=== PATIENT | female | born 1970 | race Two or more races ===

== ENCOUNTER 2025-03-10 12:27 | Inpatient (IN) | payer MEDICAID, OTHER ==
[~2025-03-10] VITALS: Ht 157.5 cm; Wt 72.5 kg
--- NOTE | 2025-03-10 12:43 | ED.PDOC ---
HPI Comments This is a 54 year old female BRIDGETT presenting to the ED with chief complaint of palpitations. Patient reports that she began to experience left sided chest pain with associated palpitations, SOB, and dizziness an hour ago during her shower, causing her to need to sit down, but no relief in symptoms was noted. Patient denies any syncope, N/V, abdominal pain, headache, or fever. 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 Hx Family History Family History: Reviewed,noncontributory to illness Social History Smoker: Non-Smoker Alcohol: Denies ETOH Use Drugs: Denies Drug Use Lives In: Home Constitutional: denies: chills, diaphoresis, fatigue, fever, malaise, sweats, weakness, others EENTM: denies: blurred vision, double vision, ear bleeding, ear discharge, ear drainage, ear pain, ear ringing, eye pain, eye redness, hearing loss, mouth pain, mouth swelling, nasal discharge, nose bleeding, nose congestion, nose pain, photophobia, tearing, throat pain, throat swelling, voice changes, others Respiratory: reports: shortness of breath; denies: cough, hemoptysis, orthopnea, SOB at rest, SOB with excertion, stridor, wheezing, others Cardiovascular: reports: chest pain, palpitations; denies: dizzy spells, diaphoresis, Dyspnea on exertion, edema, irregular heart beat, left arm pain, lightheadedness, PND, syncope, others Gastrointestinal: denies: abdomen distended, abdominal pain, blood streaked bowels, constipated, diarrhea, dysphagia, difficulty swallowing, hematemesis, melena, nausea, poor appetite, poor fluid intake, rectal bleeding, rectal pain, vomiting, others Genitourinary: denies: abnormal vagina bleeding, burning, dyspareunia, dysuria, flank pain, frequency, hematuria, incontinence, pain, , vagina discharge, urgency, others Neurological: reports: dizziness; denies: fainting, headache, left sided numbness, left sided weakness, numbness, paresthesia, pre-existing deficit, righ t sided numbness, right sided weakness, seizure, speech problems, tingling, tremors, weakness, others Musculoskeletal: denies: back pain, gout, joint pain, joint swelling, muscle pain, muscle stiffness, neck pain, others Integumetry: denies: bruises, change in color, change in hair/nails, dryness, laceration, lesions, lumps, rash, wounds, others Allergic/Immunocompromised: denies: Difficulty Healing, Frequent Infections, Hives, Itching, others Hematologic/Lymphatic: denies: anemia, blood clots, easy bleeding, easy bruising, swollen glands, others Endocrine: denies: excessive hunger, excessive sweating, excessive thirst, excessive urination, flushing, intolerance to cold, intolerance to heat, unexplained weight gain, unexplained weight loss, others Psychiatric: denies: anxiety, bipolar disorder, depression, hopeless, panic disorder, schizophrenia, sleepless, suicidal, others All Other Systems: Reviewed and Negative Physical Exam General Appearance: No Apparent Distress, Normal HEENT: Normal ENT Inspection, Pharynx Normal, TMs Normal Neck: Full Range of Motion, Non-Tender, Normal, Normal Inspection Respiratory: Chest Non-Tender, Lungs Clear, No Accessory Muscle Use, No Respiratory Distress, Normal Breath Sounds Cardiovascular: No Edema, No JVD, No Murmur, No Gallop, Normal Peripheral Pulses, Regular Rate/Rhythm Breast Exam: Deferred Gastrointestinal: No Organomegaly, Non Tender, No Pulsatile Mass, Normal Bowel Sounds, Soft Genitalia: Deferred Pelvic: Deferred Rectal: Deferred Extremities: No calf tenderness, Normal capillary refill, Normal inspection, Normal range of motion, Non-tender, No pedal edema Musculoskeletal : Apperance: Normal Neurologic: Alert, physician scientist II-XII nml as Tested, No Motor Deficits, Normal Affect, Normal Mood, No Sensory Deficits Cerebellar Function: Normal Reflexes: Normal Skin: Dry, Normal Color, Warm Lymphatic: No Adenopathy Was a procedure done? Was a procedure done?: No CP Differential Dx Differential Diagnosis: MAT, TN, PAC's Differential Diagnosis: HTN Essential, HTN Accelerated Differential Diagnosis: Myocardial Infarction, Pericarditis X-Ray, Labs, Meds, VS Vital Signs Date Time Temp Pulse Resp B/P (MAP) Pulse Ox O2 Delivery O2 Flow Rate FiO2 03/10/25 15:28 117 03/10/25 13:28 116 03/10/25 12:38 98.1 126 20 174/81 97 98.1 03/10/25 12:30 120 Lab Test 03/10/25 14:21 03/10/25 13:50 03/10/25 12:52 Range/Units Urine Color Yellow Yellow Urine Clarity Clear Clear Urine pH 6.0 5.0-9.0 Urine Specific [place] 1.028 1.001-1.035 Urine Protein 3+ H Negative Urine Ketones Trace Negative Urine Blood 2+ H Negative /uL Urine Nitrite Negative Negative Urine Bilirubin Negative Negative Urine Urobilinogen Normal Negative mg/dL Urine Leukocyte Esterase Negative Negative /uL Urine RBC 13 0 - 4 /hpf Urine Microscopic WBC < 1 0-5 /HPF Urine Squamous Epithelial Cells Few <5 /hpf Urine Bacteria None seen None Seen /hpf Urine Hyaline Casts Many 0 - 2 /lpf Urine Mucus Few None Seen Urine Yeast (Budding) Occasional None Seen /hpf Urine Glucose Normal Normal mg/dL Troponin I High Sensitivity 28 20 </=34 ng/L White Blood Count 9.1 4.4-10.8 10^3/uL Red Blood Count 4.47 4.0-5.20 10^6/uL Hemoglobin 12.7 12.2-16.2 g/dL Hematocrit 38.5 36.0-46.0 % Mean Corpuscular Volume 86.1 80.0-100.0 fL Mean Corpuscular Hemoglobin 28.4 28.0-32.0 pg Mean Corpuscular Hemoglobin Concent 33.0 32.0-36.0 g/dL Red Cell Distribution Width 16.7 H 11.8-14.3 % Platelet Count 404 140-450 10^3/uL Mean Platelet Volume 7.1 6.9-10.8 fL Neutrophils (%) (Auto) 67.8 37.0-80.0 % Lymphocytes (%) (Auto) 23.2 10.0-50.0 % Monocytes (%) (Auto) 8.0 0.0-12.0 % Eosinophils (%) (Auto) 0.1 0.0-7.0 % Basophils (%) (Auto) 0.9 0.0-2.0 % Neutrophils # (Auto) 6.2 1.6-8.6 10 ^3/uL Lymphocytes # (Auto) 2.1 0.4-5.4 10 ^3/uL Monocytes # (Auto) 0.7 0-1.3 10 ^3/uL Eosinophils # (Auto) 0 0-0.8 10 ^3/uL Basophils # (Auto) 0.1 0-0.2 10 ^3/uL Nucleated Red Blood Cells 0.2 % Sodium Level 139 136-145 mmol/L Potassium Level 3.1 L 3.5-5.1 mmol/L Chloride Level 109 H 98-107 mmol/L Carbon Dioxide Level 11 L 20-31 mmol/L Anion Gap 19 H 5-15 Blood Urea Nitrogen 16 9-23 mg/dL Creatinine 0.76 0.550-1.02 mg/dL Glomerular Filtration Rate Calc 92 >90 mL/min BUN/Creatinine Ratio 21.1 H 10.0-20.0 Serum Glucose 90 74-106 mg/dL Calcium Level 7.7 L 8.7-10.4 mg/dL Time of 1ST Reevaluation: 13:40 Reevaluation 1ST: Unchanged Patient Education/Counseling: Diagnosis, Treatment Family Education/Counseling: No Family Present SEPSIS Sepsis Screen Physician Orders Chest Portable (03/10/25 12:36) Electrocardigram (03/10/25 12:31) Troponin-I Hs (03/10/25 15:31) Electrocardigram (03/10/25 13:31) Electrocardigram (03/10/25 15:31) Vital Signs Date Time Temp Pulse Resp B/P (MAP) Pulse Ox O2 Delivery O2 Flow Rate FiO2 03/10/25 15:28 117 03/10/25 13:28 116 03/10/25 12:38 98.1 126 20 174/81 97 98.1 03/10/25 12:30 120 Laboratory Tests Test 03/10/25 12:52 White Blood Count 9.1 10^3/uL (4.4-10.8) Departure 1 Departure Time of Disposition: 16:40 (Patient presented with chest pain and palpitations that was concerning for possible STEMI, ACS, PE, Pneumonia, Muscle Strain, COPD, Dissection. Data: 1. I ordered and reviewed the result of at least 3 labs including a CBC, BMP, and Troponin. 2. I independently interpreted the following tests: EKG which shows sinus arrhythmia and Chest X-ray which shows benign chest.Risk:This patient has a high risk of morbidity due to further diagnostic testing or treatment and may suffer from an acute cardiac or respiratory disorder. Workup reveals concern for ACS versus cardiac arrhythmia and patient should be admitted for further workup and possible expert consultation. ) Impression: Primary Impression: Acute chest pain Additional Impression: Palpitations Disposition: ADMITTED INPATIENT Admit to: Tele Condition: Serious Critical Care Note Critical Care Time?: No Stability Stability form required: No Heart Score Heart Score: Heart Score Response (Comments) Value History Moderate Suspicious 1 EKG Normal 0 Age 45-64 1 Risk Factors No known risk factors 0 Troponin Normal limit 0 Total 2 I personally scribed for SYLVIA TRAN MD ([email or web address]) on 03/10/25 at 12:43. Electronically submitted by Ralph Smith ([email or web address]). SYLVIA TRAN MD Mar 10, 2025 12:43
[2025-03-10 13:07] LABS: Hematocrit 38.5 % (36.0-46.0); Hemoglobin 12.7 g/dL (12.2-16.2); Mean Corpuscular Hemoglobin 28.4 pg (28.0-32.0); Mean Corpuscular Volume 86.1 fL (80.0-100.0); Nucleated Red Blood Cells % 0.2 %
--- NOTE | 2025-03-10 13:14 | DVH ---
XY CHEST PORTABLE, HISTORY: sob COMPARISON: None None TECHNICAL DATA: 1 view of the chest was obtained. FINDINGS: Lines and tubes: None Cardiomediastinal silhouette: normal Pulmonary vasculature: normal Lung expansion: normal Lung airspace: normal Lung interstitium: normal Pleura: normal Pneumothorax: no Bones: Unremarkable Other: no IMPRESSION: No acute intrathoracic abnormality.
[2025-03-10 13:28] LABS: Sodium 139 mmol/L (136-145)
[2025-03-10 13:29] LABS: Chloride 109 mmol/L (98-107); Potassium 3.1 mmol/L (3.5-5.1)
[2025-03-10 13:32] LABS: Anion Gap 19 (5-15); Calcium 7.7 mg/dL (8.7-10.4); Carbon Dioxide 11 mmol/L (20-31)
[2025-03-10 13:34] LABS: BUN/Creatinine Ratio 21.1 (10.0-20.0); Blood Urea Nitrogen 16 mg/dL (9-23); Glucose 90 mg/dL (74-106)
[2025-03-10 14:33] LABS: Urine Budding Yeast OCCASIONAL /hpf (None Seen); Urine Protein, UAD 3+ (Negative)
[2025-03-10] MEDS: SODIUM CHLORIDE 0.9% 1,000 ML IV ONE (15:26)
[2025-03-10] MEDS ORDERED: ONDANSETRON HCL 4 MG/2 ML VIAL IV PRN (22:45)
[2025-03-10] MEDS ORDERED: ACETAMINOPHEN 325 MG TAB PO PRN (22:45)
[2025-03-10 22:59] VITALS: PULSE 85; RESP 18; O2SAT 98
--- NOTE | 2025-03-10 23:04 | ECG ---
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
[2025-03-10] MEDS ORDERED: cloNIDine 0.2 mg/24hr 7DAY PATCH TD ONE (23:45)
[2025-03-10] MEDS: CALCIUM GLUC 1,000mg/50ml-NS 50 ML IV ONE (23:47)
[2025-03-10] MEDS: POTASSIUM CHL 20 Meq TABLET PO ONE (23:47)
--- NOTE | 2025-03-10 23:49 | DVHHP2 ---
History of Present Illness Reason for Visit: Acute chest pain History of Present Illness The patient is a 54 years old female with past medical history of CVA and anxiety who presented to [facility] ED with complaint of palpitations. Patient reports that she started experiencing left-sided chest pain associated with palpitations, shortness of breaths, and dizziness an during her shower, causing her the need to sit down, but no relief of symptoms. Patient was seen and evaluated in the ED, laboratory data shows WBC 9.1, platelets 404, sodium 139, potassium 3.1, BUN 16, creatinine 0.76, glucose 90, anion gap 19, calcium 7.7, troponin 38, blood pressure 159/112 trending down to 130 64, heart rate 131 trending down to 99, temperature 98.3 F, O2 saturation 98% room air. Chest x-ray shows no acute intrathoracic abnormality. Please see medication orders section in the computer. On my assessment, patient denies chest pain at this moment, no headache, no dizziness, no diaphoresis, no shortness of breaths, no nausea, no vomiting, no fever, no chills. Patient was admitted for further evaluation and medical management. Past Medical History Anxiety, CVA Past Surgical History Denies all surgeries Family History Reviewed, noncontributory to the management of this case. Past Social History The patient lives at home, denies smoking, alcohol or illicit drugs abuse. Review of Systems Constitutional: No: Fever, Chills, Sweats, Weakness, Malaise, Other Eyes: No: Pain, Vision change, Conjunctivae inflammation, Eyelid inflammation, Other, Redness ENT: No: Ear pain, Ear discharge, Nose pain, Nose discharge, Nose congestion, Mouth pain, Mouth swelling, Throat pain, Throat swelling, Other Respiratory: Shortness of breath; No: Cough, Dry, SOB with excertion, Wheezing, Hemoptysis, Pleuritic Pain, Sputum, Wheezing, Other Cardiovascular: Chest Pain, Palpitations; No: Orthopnea, Paroxysmal Noc. Dyspnea, Edema, Lt Headedness, Other Gastrointestinal: No: Nausea, Vomiting, Abdominal Pain, Diarrhea, Constipation, Melena, Hematochezia, Other Genitourinary: No Dysuria, No Frequency, No Incontinence, No Hematuria, No Retention, No Other Musculoskeletal: No: other, neck pain, shoulder pain, arm pain, back pain, hand pain, leg pain, foot pain Skin: No: Rash, Lesions, Jaundice, Bruising, Other Neurological: Other (Dizziness); No: Weakness, Numbness, Incoordination, Change in speech, Confusion, Seizures Allergies: Coded Allergies: NO KNOWN ALLERGIES (Unverified , 03/10/25) Medications Current Medications Medications Dose Ordered Sig/Lacho Route Start Time Stop Time Status Last Admin Dose Admin Aspirin 81 mg DAILY PO 03/11/25 10:00 Metoprolol Tartrate 25 mg BID PO 03/11/25 10:00 Levothyroxine Sodium 88 mcg QAM@0600 PO 03/11/25 06:00 Sodium Chloride 1,000 ml @ 60 mls/hr [id number] IV 03/10/25 22:45 Acetaminophen/ Hydrocodone Bitart 1 tab Q4HP PRN PO 03/10/25 22:45 Ondansetron HCl 4 mg Q4HP PRN IV 03/10/25 22:45 Docusate Sodium 100 mg BIDPRN PRN PO 03/10/25 22:45 Acetaminophen 650 mg Q6HP PRN PO 03/10/25 22:45 Exam Vital Signs Vital Signs Date Time Temp Pulse Resp B/P (MAP) Pulse Ox O2 Delivery O2 Flow Rate FiO2 03/10/25 23:46 198/123 03/10/25 23:32 98.3 120 18 98 98.3 03/10/25 22:59 Room Air* 0 21 General Appearance: Alert, Oriented X3, Cooperative, No acute distress HEENT: Atraumatic, PERRLA, EOMI, Mucous membr. moist/pink Respiratory: Normal air movement Cardiovascular: Regular rate, Normal S1, Normal S2, No murmurs Abdominal: Normal bowel sounds, Soft, No tenderness, No hepatospenomegaly, No masses Extremities: No clubbing, No cyanosis, No edema, Normal pulses, No tenderness/swelling Skin: No rashes, No breakdown, No significant lesion Neuro: Normal gait, Normal speech, Strength at 5/5 X4 ext, Normal tone, Sensation intact, Cranial nerves 3-12 NL, Reflexes 2+ Psych/Mental Status: Mental status NL, Mood NL Labs/Xrays Labs Test 03/10/25 16:37 03/10/25 14:21 03/10/25 12:52 Range/Units Troponin I High Sensitivity 38 *H </=34 ng/L Thyroid Stimulating Hormone (TSH) 6.03 H 0.55-4.78 uIU/mL Urine Color Yellow Yellow Urine Clarity Clear Clear Urine pH 6.0 5.0-9.0 Urine Specific [place] 1.028 1.001-1.035 Urine Protein 3+ H Negative Urine Ketones Trace Negative Urine Blood 2+ H Negative /uL Urine Nitrite Negative Negative Urine Bilirubin Negative Negative Urine Urobilinogen Normal Negative mg/dL Urine Leukocyte Esterase Negative Negative /uL Urine RBC 13 0 - 4 /hpf Urine Microscopic WBC < 1 0-5 /HPF Urine Squamous Epithelial Cells Few <5 /hpf Urine Bacteria None seen None Seen /hpf Urine Hyaline Casts Many 0 - 2 /lpf Urine Mucus Few None Seen Urine Yeast (Budding) Occasional None Seen /hpf Urine Glucose Normal Normal mg/dL White Blood Count 9.1 4.4-10.8 10^3/uL Red Blood Count 4.47 4.0-5.20 10^6/uL Hemoglobin 12.7 12.2-16.2 g/dL Hematocrit 38.5 36.0-46.0 % Mean Corpuscular Volume 86.1 80.0-100.0 fL Mean Corpuscular Hemoglobin 28.4 28.0-32.0 pg Mean Corpuscular Hemoglobin Concent 33.0 32.0-36.0 g/dL Red Cell Distribution Width 16.7 H 11.8-14.3 % Platelet Count 404 140-450 10^3/uL Mean Platelet Volume 7.1 6.9-10.8 fL Neutrophils (%) (Auto) 67.8 37.0-80.0 % Lymphocytes (%) (Auto) 23.2 10.0-50.0 % Monocytes (%) (Auto) 8.0 0.0-12.0 % Eosinophils (%) (Auto) 0.1 0.0-7.0 % Basophils (%) (Auto) 0.9 0.0-2.0 % Neutrophils # (Auto) 6.2 1.6-8.6 10 ^3/uL Lymphocytes # (Auto) 2.1 0.4-5.4 10 ^3/uL Monocytes # (Auto) 0.7 0-1.3 10 ^3/uL Eosinophils # (Auto) 0 0-0.8 10 ^3/uL Basophils # (Auto) 0.1 0-0.2 10 ^3/uL Nucleated Red Blood Cells 0.2 % Sodium Level 139 136-145 mmol/L Potassium Level 3.1 L 3.5-5.1 mmol/L Chloride Level 109 H 98-107 mmol/L Carbon Dioxide Level 11 L 20-31 mmol/L Anion Gap 19 H 5-15 Blood Urea Nitrogen 16 9-23 mg/dL Creatinine 0.76 0.550-1.02 mg/dL Glomerular Filtration Rate Calc 92 >90 mL/min BUN/Creatinine Ratio 21.1 H 10.0-20.0 Serum Glucose 90 74-106 mg/dL Calcium Level 7.7 L 8.7-10.4 mg/dL PATIENT: NICK MORALES ACCT: [id number] UNIT: [id number] : 1970 LOC: ER ROOM / BED: / AGE / SEX: 54 / F ADM STATUS: REG ER SERVICE 1236 ORDERING PHYSICIAN: SYLVIA TRAN MD PROCEDURE(s): CXRP - CHEST PORTABLE REASON: sob ORDER NUMBER(s): [id number], ACCESSION NUMBER(s): [id number] CHEST PORTABLE, HISTORY: sob COMPARISON: None None TECHNICAL DATA: 1 view of the chest was obtained. FINDINGS: Lines and tubes: None Cardiomediastinal silhouette: normal Pulmonary vasculature: normal Lung expansion: normal Lung airspace: normal Lung interstitium: normal Pleura: normal Pneumothorax: no Bones: Unremarkable Other: no IMPRESSION: No acute intrathoracic abnormality. SEPSIS Sepsis Screen Date sepsis recognized/suspect: Mar 10, 2025 Time Sepsis recognized/suspect: 1239 Recent Procedure: No On Antibiotic Therapy: No Respiratory Rate >20: No Heart Rate >90: Yes Temp<36 C (96.8 F) or >38.3 C: No SBP <90 or MAP <65 mmHG: No New Acute Mental Status Change: No Is the patient on CPAP, BIPAP,: No Physician Orders Aspirin Tablet (03/11/25 10:00) Metoprolol Tartrate Tablet (Lopressor Ta (03/11/25 10:00) Levothyroxine Tablet (Synthroid Tablet) (03/11/25 06:00) Allergies (03/10/25 22:40) Code Status (03/10/25 22:40) Sodium Chloride 0.9% (03/10/25 22:45) Oxygen Per Hour (03/10/25 22:40) Hydrocodone-Acet 5/325mg Tab ([place] (03/10/25 22:45) Ondansetron Hcl (Zofran) (03/10/25 22:45) Docusate Sodium Capsule (Colace Capsule) (03/10/25 22:45) Complete Blood Count (03/11/25 04:00) Comprehensive Metabolic Panel (03/11/25 04:00) Cardiac Diet-2gna,Lofat,Lochol (03/11/25 Breakfast) Condition: Serious (03/10/25 22:40) Acetaminophen Tablet (Tylenol Tablet) (03/10/25 22:45) Bedrest With Bathroom Privileg (03/10/25 22:40) Maintain Bed Rest (03/10/25 22:40) Sequential Compression Device (03/10/25 ) Vital Signs Date Time Temp Pulse Resp B/P (MAP) Pulse Ox O2 Delivery O2 Flow Rate FiO2 03/10/25 23:46 198/123 03/10/25 23:32 98.3 120 18 198/123 (148) 98 98.3 03/10/25 23:04 121 03/10/25 22:59 85 18 98 Room Air* 0 21 03/10/25 22:39 97.8 124 20 192/87 (122) 100 97.8 03/10/25 19:02 98.3 124 24 159/112 (128) 98 98.3 03/10/25 17:06 98.0 131 22 162/91 (114) 98 98.0 03/10/25 17:06 131 22 98 Room Air Laboratory Tests Test 03/10/25 12:52 White Blood Count 9.1 10^3/uL (4.4-10.8) Medications Medications Dose Ordered Sig/Lacho Route Start Time Stop Time Status Last Admin Dose Admin Aspirin 81 mg ONCE ONCE PO 03/10/25 22:45 03/10/25 22:58 DC 03/10/25 23:47 81 MG Calcium Gluconate/ Sodium Chloride 50 ml @ 100 mls/hr ONCE ONCE IV 03/10/25 22:45 03/10/25 23:14 DC 03/10/25 23:47 100 MLS/HR Clonidine HCl 0.2 mg ONCE ONCE PO 03/10/25 23:45 03/10/25 23:46 DC 03/10/25 23:46 0.2 MG Potassium Chloride 40 meq ONCE ONCE PO 03/10/25 22:45 03/10/25 22:58 DC 03/10/25 23:47 40 MEQ Sodium Chloride 1,000 ml @ 1,000 mls/hr Q1H ONCE IV 03/10/25 17:00 03/10/25 17:59 DC 03/10/25 15:26 1,000 MLS/HR Assessment/Plan Assessment/Plan Acute chest pain Palpitations Electrolyte imbalance Plan 1. Admit to telemetry unit 2. Breathing treatment 3. Pain control management 4. Management of fluids and electrolytes 5. Consultation for cardiology 6. Diagnostic tests chest x-ray 7. DVT prophylaxis-on aspirin 8. Repeat labs CBC, CMP in a.m. 9. Continue with current medical management 10. Treatment plan discussed with patient and RN. Patient verbalized understanding. Plan discussed with: Patient, Other (RN) My Orders Orders - MIREYA REID DNP Procedure Category Date Status Time Aspirin Tablet PHA 03/11/25 In Process 10:00 Metoprolol Tartrate PHA 03/11/25 In Process Tablet (Lopressor Ta 10:00 Levothyroxine Tablet PHA 03/11/25 In Process (Synthroid Tablet) 06:00 Allergies JONA 03/10/25 In Process 22:40 Code Status CODE 03/10/25 Transmitted 22:40 Sodium Chloride 0.9% PHA 03/10/25 In Process 22:45 Oxygen Per Hour RT 03/10/25 Transmitted 22:40 Hydrocodone-Acet PHA 03/10/25 In Process 5/325mg Tab ([place] 22:45 Ondansetron Hcl PHA 03/10/25 In Process (Zofran) 22:45 Docusate Sodium PHA 03/10/25 In Process Capsule (Colace 22:45 Complete Blood Count LAB 03/11/25 Verified 04:00 Comprehensive LAB 03/11/25 Verified Metabolic Panel 04:00 Cardiac DIET 03/11/25 Transmitted Diet-2gna,Lofat,Lochol Breakfast Condition: Serious JONA 03/10/25 In Process 22:40 Acetaminophen Tablet PHA 03/10/25 In Process (Tylenol Tablet) 22:45 Bedrest With Bathroom JONA 03/10/25 In Process Privileg 22:40 Maintain Bed Rest JONA 03/10/25 In Process 22:40 Sequential JONA 03/10/25 In Process Compression Device Problem List: (1) Acute chest pain (2) Palpitations (3) Electrolyte imbalance Date of Service: Mar 10, 2025 Billing Provider: MIREYA REID DNP Common Visit Codes: [id number] INP/OBS CARE (HIGH) MIREYA REID DNP Mar 10, 2025 23:49
[2025-03-10] MEDS: HYDROcodone-ACET 5/325MG TAB PO PRN (23:56)
[2025-03-11] VITALS (10 sets, daily range): BP systolic 119–144; BP diastolic 61–80; PULSE 87–99; RESP 16–21; TEMP 97.5–98.3; O2SAT 97–100
[2025-03-11] MEDS ORDERED: MORPHINE SULFATE INJ 2 MG/ml SYRG IV PRN
[2025-03-11] MEDS ORDERED: NITROGLYCERIN 0.4 MG SL TAB SL PRN
[2025-03-11] MEDS: SODIUM CHLORIDE 0.9% 1,000 ML IV SCH (00:35)
[2025-03-11 03:57] LABS: Hematocrit 35.9 % (36.0-46.0); Hemoglobin 12.0 g/dL (12.2-16.2); Mean Corpuscular Hemoglobin 28.7 pg (28.0-32.0); Mean Corpuscular Volume 86.1 fL (80.0-100.0); Nucleated Red Blood Cells % 0.1 %
[2025-03-11 04:54] LABS: Anion Gap 17 (5-15); BUN/Creatinine Ratio 17.9 (10.0-20.0); Bilirubin, Total 0.5 mg/dL (0.2-1.0); Blood Urea Nitrogen 15 mg/dL (9-23); Potassium 4.0 mmol/L (3.5-5.1); Sodium 138 mmol/L (136-145)
[2025-03-11 04:57] LABS: Alanine Aminotransferase 90 U/L (7-40); Albumin 2.8 g/dL (3.2-4.8); Alkaline Phosphatase 318 U/L (46-116); Calcium 7.8 mg/dL (8.7-10.4); Carbon Dioxide 11 mmol/L (20-31); Chloride 110 mmol/L (98-107); Glucose 122 mg/dL (74-106); Total Protein 5.3 g/dL (5.7-8.2)
[2025-03-11] MEDS: LEVOTHYROXINE SODIUM 88 MCG TAB PO SCH (06:14)
[2025-03-11] MEDS: METOPROLOL TARTRATE 25 MG TAB PO SCH (10:23)
[2025-03-11] MEDS: hydrOXYzine 25 MG TAB or CAP PO PRN (12:54)
--- NOTE | 2025-03-11 14:57 | DVHPN2 ---
Progress Note Date Seen: Mar 11, 2025 Medical Necessity Reason Pt with a Central, PICC or Fol: No Subjective Review of Systems Negative except as above Patient reports: Other (Patient is awake, alert, resting in bed. Patient stated that she can feel the palpitation. No chest pain or shortness for breath, nausea vomiting constipation or diarrhea.) Review of Systems: HEENT:Normal, CVS:Normal, RESPIRATORY:Normal, GI:Normal, :Normal, MSK:Normal, NEURO:Normal Objective vital signs Vital Sign Date Time Temp Pulse Resp B/P (MAP) Pulse Ox O2 Delivery O2 Flow Rate FiO2 03/11/25 13:50 98.1 94 16 144/68 (93) 100 98.1 03/11/25 08:00 Room Air* 0 21 medications Current Medications Medications Dose Ordered Sig/Lacho Route Start Time Stop Time Status Last Admin Dose Admin Aspirin 81 mg DAILY PO 03/11/25 10:00 03/11/25 10:23 81 MG Metoprolol Tartrate 25 mg BID PO 03/11/25 10:00 03/11/25 10:23 25 MG Levothyroxine Sodium 88 mcg QAM@0600 PO 03/11/25 06:00 03/11/25 06:14 88 MCG Sodium Chloride 1,000 ml @ 60 mls/hr [id number] IV 03/10/25 22:45 03/11/25 14:43 60 MLS/HR Acetaminophen/ Hydrocodone Bitart 1 tab Q4HP PRN PO 03/10/25 22:45 03/11/25 06:15 1 TAB Ondansetron HCl 4 mg Q4HP PRN IV 03/10/25 22:45 Docusate Sodium 100 mg BIDPRN PRN PO 03/10/25 22:45 Acetaminophen 650 mg Q6HP PRN PO 03/10/25 22:45 Nitroglycerin 0.4 mg Q5MINP PRN SL 03/11/25 00:00 Morphine Sulfate 2 mg Q30M PRN IV 03/11/25 00:00 Hydroxyzine Pamoate 50 mg Q8HP PRN PO 03/11/25 10:30 03/11/25 12:54 50 MG Examination: GENERAL:Normal, LUNGS:Normal, CVS:Abnormal (Sinus tachycardic), ABDOMEN:Normal, MSK:Normal, SKIN:Normal, NEURO:Normal laboratory and microbiology Laboratory Tests 03/11/25 03:24 Test 03/11/25 03:24 Range/Units Serum Glucose 122 H 74-106 mg/dL Labs and/or images reviewed: Labs reviewed by me, Image(s) reviewed by me Problem List/Assessment/Plan Problem List/Assessment/Plan Sinus tachycardia Elevated TSH Elevated LFTs Hypo chloride anemia Metabolic acidosis Elevated anion gap Elevated troponin rule out ACS Proteinuria Hematuria Anemia normocytic with a clean significant Hypertensive urgency History of CVA History of diabetes Check echo of the heart to rule out ACS strict heart disease Cardiology consult. Pending Cardiac recommendation Troponin plateau Check EKG Resume home meds IV fluids Check ABG to assess for metabolic acidosis Check T4 to assess for hypo thyroidism Cardiac diet Full code Lovenox for DVT prophylaxis No GI prophylaxis needed Plan discussed with: Patient My Orders My Orders Orders - GEORGE ACEVEDO MD Procedure Category Date Status Time Hydroxyzine Oral PHA 03/11/25 In Process (Vistaril Oral) 10:30 Date of Service: Mar 11, 2025 Billing Provider: GEORGE ACEVEDO MD Common Visit Codes: [id number] INP/OBS CARE(HIGH) GEORGE ACEVEDO MD Mar 11, 2025 14:57
[2025-03-11] MEDS ORDERED: dilTIAZem 25 MG/5 ML VIAL IV PRN (15:00)
[2025-03-11] MEDS ORDERED: hydrALAZINE HCL 20 MG/ML VL IV PRN (15:00)
--- NOTE | 2025-03-11 16:25 | DVH ---
INDICATION: elevated lft TECHNIQUE: Multiple real-time sonographic images of the abdomen were obtained. COMPARISON: None FINDINGS: Increased hepatic echogenicity consistent with steatosis.. The liver measures 17.2 cm. No intrahepatic biliary ductal dilatation is noted. Gallbladder has been surgically removed. The common duct measures 0.4 cm and is unremarkable. Fluid in Darby's pouch The right kidney measures 10.5 cm. No hydronephrosis. 3 mm echogenic cortical lesion right The pancreas is not well visualized due to obscuration from bowel gas. The visualized portions of the IVC and aorta are grossly unremarkable. IMPRESSION: 1. Increased hepatic echogenicity consistent with steatosis; the liver is enlarged at 17.2 cm. 2. Status post cholecystectomy. 3. There is no intrahepatic biliary ductal dilatation. 4. The common duct is unremarkable at 0.4 cm. 5. Fluid is present in Darby's pouch. 6. The right kidney is normal in size with a 3 mm echogenic cortical lesion and no hydronephrosis. 7. The pancreas is not well visualized due to obscuration from bowel gas. 8. The visualized portions of the IVC and aorta are grossly unremarkable.
[2025-03-11] MEDS: SOD CHL 0.45% 1,000 ML IV SCH (16:35)
[2025-03-11 17:31] LABS: Base Excess -4.1 mmol/L (-2.0-3.0)
[2025-03-11] MEDS: DOCUSATE SOD 100 MG CAP PO PRN (21:33)
[2025-03-12] VITALS (7 sets, daily range): BP systolic 117–150; BP diastolic 68–73; PULSE 73–97; RESP 16–20; TEMP 97–97.8; O2SAT 96–97
--- NOTE | 2025-03-12 09:57 | DVHINCON2 ---
Date Seen: Mar 12, 2025 Referring Physician Dinesh Reason for Consultation Chest Pain, Palpitations History of Present Illness 54-year-old female with PMH for HTN taken off medication about 1-1/2 years prior, anxiety presented to the hospital with chest pain, palpitations, worsening shortness of breath. Patient states she started to feel short of breath at rest felt anxious and felt her heart was racing. Patient also was having some chest discomfort described as pressure in nature retrosternal nonradiating constant. Patient does endorse she has also been noticing some increased lower extremity edema on and off for the last 1.5 months. Denies any previous cardiac workup, arrhythmias, or seen cardiology specialty. Patient does endorse family history of heart problems with grandmother and mother having CHF and hypertension. Upon evaluation in the ER patient found to have troponins trending 20, 28, 38. CXR negative for acute congestion/edema. Elevated LFTs with AST 215 and ALT 90. Patient endorses occasional at times heavy alcohol consumption socially. Patient also found to have elevated blood pressure of 174/81 on presentation as well as being tachycardic with heart rate to the 120s to 130s. EKG reviewed and shows sinus tachycardia at 121 beats per minute, LVH, nonspecific ST and T-wave abnormality. Past Medical History HTN, anxiety Past Surgical History Denies previous cardiac surgeries Family History Mother and grandmother, CHF, HTN Social History Denies tobacco, illicit drug use. Occasional alcohol use with binge drinking socially Allergies: Coded Allergies: NO KNOWN ALLERGIES (Unverified , 03/10/25) Current Medications Current Medications Medications (Trade) Dose Ordered Sig/Lacho Route PRN Reason Start Time Stop Time Status Last Admin Aspirin 81 mg DAILY PO 03/11/25 10:00 03/12/25 08:34 Metoprolol Tartrate (Lopressor Tablet) 25 mg BID PO 03/11/25 10:00 03/12/25 08:34 Hydroxyzine Pamoate (Vistaril Oral) 50 mg Q8HP PRN PO ANXIETY 03/11/25 10:30 03/11/25 12:54 Sodium Chloride 1,000 ml @ 100 mls/hr Q10H IV 03/11/25 15:00 03/12/25 01:00 Hydralazine HCl (Apresoline Injection) 10 mg Q6HP PRN IV SBP>150 03/11/25 15:00 Diltiazem HCl (Cardizem Injection) 10 mg Q4H PRN IV HR > 110 03/11/25 15:00 Review of Systems Constitutional: No: Fever, Chills, Sweats, Weakness, Malaise, Other Eyes: No: Pain, Vision change, Conjunctivae inflammation, Eyelid inflammation, Other, Redness ENT: No: Ear pain, Ear discharge, Nose pain, Nose discharge, Nose congestion, Mouth pain, Mouth swelling, Throat pain, Throat swelling, Other Respiratory: No: Cough, Dry, Shortness of breath, SOB with exertion, Wheezing, Hemoptysis, Pleuritic Pain, Sputum, Wheezing, Other Cardiovascular: ; No: Chest Pain Palpitations, Orthopnea, Paroxysmal Noc. Dy spnea, Edema, Lt Headedness, Other Gastrointestinal: No: Nausea, Vomiting, Abdominal Pain, Diarrhea, Constipation, Melena, Hematochezia, Other Genitourinary: No Dysuria, No Frequency, No Incontinence, No Hematuria, No Retention, No Other Musculoskeletal: neck pain; No: other, shoulder pain, arm pain, back pain, hand pain, leg pain, foot pain Skin: No: Rash, Lesions, Jaundice, Bruising, Other Neurological: Other (Dizziness, headache.); No: Weakness, Numbness, Incoordination, Change in speech, Confusion, Seizures Vital Signs Vital Signs Date Time Temp Pulse Resp B/P (MAP) Pulse Ox O2 Delivery O2 Flow Rate FiO2 03/12/25 09:00 83 20 125/68 (87) 97 03/12/25 08:00 Room Air* 0 21 03/12/25 05:00 97.7 97.7 Physical Exam General appearance: Patient is well-developed, well-nourished, in no acute distress. HEENT: Exam shows: Normocephalic, atraumatic, PERRLA, EOMI Neck: Supple, no bruits Chest: Equal chest excursion bilaterally. Breath sounds normal-no rales or wheezes. Heart: Rhythm: Regular rate; no murmur or gallop Abdomen: Exam shows: Soft, nontender, nondistended Musculoskeletal: No clubbing, no cyanosis; trace lower extremity edema Dermatology: Skin warm, moist. Neurological: Exam shows: Alert and oriented x4, normal speech Available prior records, labs, EKG, rhythm strips reviewed and interpreted Labs/Diagnostic Data Labs Test 03/11/25 16:35 03/11/25 03:24 03/10/25 16:37 03/10/25 14:21 Range/Units Blood Gas Specimen Type Arterial Blood Gas Sample Site Right radial Blood Gas Patient Temperature 37.0 Arterial Blood Date Drawn [id number] Arterial Blood pH 7.466 H 7.350-7.450 Arterial Blood Partial Pressure CO2 26.3 L 32.0-45.0 mmHg Arterial Blood Partial Pressure O2 94.3 83.0-108.0 mmHg Arterial Blood HCO3 18.5 L 21.0-28.0 mmol/L Arterial Blood Oxygen Saturation 97.0 94.0-98.0 % Arterial Blood Base Excess -4.1 L -2.0-3.0 mmol/L Arterial Blood Oxyhemoglobin 96.2 94.0-98.0 % Arterial Blood Carboxyhemoglobin 0.3 L 0.5-1.5 % Arterial Blood Methemoglobin 0.5 0.0-1.5 % Yobany Test Yes Blood Gas Total Hemoglobin 10.10 L 12.0-16.0 g/dL Blood Gas Modality Room air FiO2 % 21.0 White Blood Count 10.8 4.4-10.8 10^3/uL Red Blood Count 4.17 4.0-5.20 10^6/uL Hemoglobin 12.0 L 12.2-16.2 g/dL Hematocrit 35.9 L 36.0-46.0 % Mean Corpuscular Volume 86.1 80.0-100.0 fL Mean Corpuscular Hemoglobin 28.7 28.0-32.0 pg Mean Corpuscular Hemoglobin Concent 33.3 32.0-36.0 g/dL Red Cell Distribution Width 16.5 H 11.8-14.3 % Platelet Count 320 140-450 10^3/uL Mean Platelet Volume 7.7 6.9-10.8 fL Neutrophils (%) (Auto) 77.9 37.0-80.0 % Lymphocytes (%) (Auto) 14.4 10.0-50.0 % Monocytes (%) (Auto) 6.8 0.0-12.0 % Eosinophils (%) (Auto) 0.1 0.0-7.0 % Basophils (%) (Auto) 0.8 0.0-2.0 % Neutrophils # (Auto) 8.4 1.6-8.6 10 ^3/uL Lymphocytes # (Auto) 1.6 0.4-5.4 10 ^3/uL Monocytes # (Auto) 0.7 0-1.3 10 ^3/uL Eosinophils # (Auto) 0 0-0.8 10 ^3/uL Basophils # (Auto) 0.1 0-0.2 10 ^3/uL Nucleated Red Blood Cells 0.1 % Sodium Level 138 136-145 mmol/L Potassium Level 4.0 3.5-5.1 mmol/L Chloride Level 110 H 98-107 mmol/L Carbon Dioxide Level 11 L 20-31 mmol/L Anion Gap 17 H 5-15 Blood Urea Nitrogen 15 9-23 mg/dL Creatinine 0.84 0.550-1.02 mg/dL Glomerular Filtration Rate Calc 82 >90 mL/min BUN/Creatinine Ratio 17.9 10.0-20.0 Serum Glucose 122 H 74-106 mg/dL Calcium Level 7.8 L 8.7-10.4 mg/dL Total Bilirubin 0.5 0.2-1.0 mg/dL Aspartate Amino Transferase (AST) 215 H 13-40 U/L Alanine Aminotransferase (ALT) 90 H 7-40 U/L Alkaline Phosphatase 318 H 46-116 U/L Total Protein 5.3 L 5.7-8.2 g/dL Albumin 2.8 L 3.2-4.8 g/dL Free Thyroxine (T4) Calculated 0.78 L 0.89-1.76 ng/dL Troponin I High Sensitivity 38 *H </=34 ng/L Thyroid Stimulating Hormone (TSH) 6.03 H 0.55-4.78 uIU/mL Urine Color Yellow Yellow Urine Clarity Clear Clear Urine pH 6.0 5.0-9.0 Urine Specific [place] 1.028 1.001-1.035 Urine Protein 3+ H Negative Urine Ketones Trace Negative Urine Blood 2+ H Negative /uL Urine Nitrite Negative Negative Urine Bilirubin Negative Negative Urine Urobilinogen Normal Negative mg/dL Urine Leukocyte Esterase Negative Negative /uL Urine RBC 13 0 - 4 /hpf Urine Microscopic WBC < 1 0-5 /HPF Urine Squamous Epithelial Cells Few <5 /hpf Urine Bacteria None seen None Seen /hpf Urine Hyaline Casts Many 0 - 2 /lpf Urine Mucus Few None Seen Urine Yeast (Budding) Occasional None Seen /hpf Urine Glucose Normal Normal mg/dL Assessment * Chest Pain - Mild troponin positive at 38. Trend. EKG with nonspecific ST abnormality. Check ECHO. Continue on aspirin and statin. * Palpitations - Tele monitoring. On metoprolol 25 mg po twice daily. Outpatient event monitoring. * Shortness of breath - CXR negative for congestive/edema. Check BNP. Follow up echo. * Uncontrolled HTN - Better controlled. Continue on metoprolol. * Elevated LFTs - ultrasound showing increased hepatic echo centricity consistent with steatosis. Enlarged liver at 17.2 cm. Management per primary team. * Hypothyroid - On levothyroxine. Case Discussed with Dr James. Continue blood pressure control. Trend troponin. Follow up echo. If no significant abnormalities noted on echo, we will Plan for stress test Friday morning. Critical care, time spent: 40 minutes This medical document was created using an electronic medical record system with voice recognition software and computerized dictation system. Although this document has been carefully reviewed, there might still be some phonetic and typographical errors. Occasional wrong-word or ``sound-alike substitutions may have occurred due to the inherent limitations of voice recognition software. These areas are purely typographical due to imperfections of the software programs and do not reflect any compromise in the patient's medical care. Please read the chart carefully and recognize, using context, where these substitutions have occurred. Thank you for allowing me to participate in the management of this patient. The treatment plan was discussed with and agreed upon by patient/family including requesting consultants and ordering of imaging/procedures. Plan discussed with: Patient NYHA Physical activity limitations: Class3(Marked) ordinary Date of Service: Mar 12, 2025 Billing Provider: LAUAR MCNALLY Cardiology Common Codes: [id number] INP/OBS CARE (High), [id number] CARE 30-74 MIN LAURA MCNALLY Mar 12, 2025 09:57
[2025-03-12 10:37] LABS: Hematocrit 30.2 % (36.0-46.0); Hemoglobin 9.6 g/dL (12.2-16.2); Mean Corpuscular Hemoglobin 28.0 pg (28.0-32.0); Mean Corpuscular Volume 88.1 fL (80.0-100.0); Nucleated Red Blood Cells % 0.2 %
--- NOTE | 2025-03-12 17:40 | DVHPN2 ---
Progress Note Date Seen: Mar 12, 2025 Medical Necessity Reason Pt with a Central, PICC or Fol: No Subjective Patient reports: Feels better Objective vital signs Vital Sign Date Time Temp Pulse Resp B/P (MAP) Pulse Ox O2 Delivery O2 Flow Rate FiO2 03/12/25 13:00 97.8 83 20 150/73 (98) 97 97.8 03/12/25 08:00 Room Air* 0 21 Total Intake and Output 03/11/25 03/11/25 03/12/25 15:00 23:00 07:00 Intake Total 120 ml 1340 ml Balance 120 ml 1340 ml medications Current Medications Medications Dose Ordered Sig/Lacho Route Start Time Stop Time Status Last Admin Dose Admin Aspirin 81 mg DAILY PO 03/11/25 10:00 03/12/25 08:34 81 MG Metoprolol Tartrate 25 mg BID PO 03/11/25 10:00 03/12/25 08:34 25 MG Levothyroxine Sodium 88 mcg QAM@0600 PO 03/11/25 06:00 03/12/25 05:39 88 MCG Acetaminophen/ Hydrocodone Bitart 1 tab Q4HP PRN PO 03/10/25 22:45 03/12/25 11:27 1 TAB Ondansetron HCl 4 mg Q4HP PRN IV 03/10/25 22:45 Docusate Sodium 100 mg BIDPRN PRN PO 03/10/25 22:45 03/12/25 16:02 100 MG Acetaminophen 650 mg Q6HP PRN PO 03/10/25 22:45 Nitroglycerin 0.4 mg Q5MINP PRN SL 03/11/25 00:00 Morphine Sulfate 2 mg Q30M PRN IV 03/11/25 00:00 Hydroxyzine Pamoate 50 mg Q8HP PRN PO 03/11/25 10:30 03/12/25 16:03 50 MG Sodium Chloride 1,000 ml @ 100 mls/hr Q10H IV 03/11/25 15:00 03/12/25 01:00 100 MLS/HR Hydralazine HCl 10 mg Q6HP PRN IV 03/11/25 15:00 Diltiazem HCl 10 mg Q4H PRN IV 03/11/25 15:00 Examination: GENERAL:Normal, HEENT:Normal, NECK:Normal, LUNGS:Normal, CVS:Normal, ABDOMEN:Normal, MSK:Normal, SKIN:Normal, NEURO:Normal laboratory and microbiology Laboratory Tests 03/12/25 10:10 03/11/25 03:24 Test 03/11/25 03:24 Range/Units Serum Glucose 122 H 74-106 mg/dL Labs and/or images reviewed: Labs reviewed by me, Image(s) reviewed by me Problem List/Assessment/Plan Problem List/Assessment/Plan Sinus tachycardia Elevated TSH Elevated LFTs Hypo chloride anemia Metabolic acidosis Elevated anion gap Elevated troponin rule out ACS Proteinuria Hematuria Anemia normocytic with a clean significant Hypertensive urgency History of CVA History of diabetes HR stable at 80s Cardiology rec apprecated Troponin plateau Resume home meds IV fluids Echo pending Cardiac diet Full code Lovenox for DVT prophylaxis No GI prophylaxis needed Plan discussed with: Patient Date of Service: Mar 12, 2025 Billing Provider: GEORGE ACEVEDO MD Common Visit Codes: [id number] INP/OBS CARE(MOD) GEORGE ACEVEDO MD Mar 12, 2025 17:40
--- NOTE | 2025-03-12 23:12 | DVHINCON2 ---
Date Seen: Mar 12, 2025 Referring Physician Dinesh Reason for Consultation Chest Pain, Palpitations History of Present Illness This is a 54-year-old female with a PMH of HTN taken off medication about 1-1/2 years prior, anxiety who presented to the ED with complaints of chest pain, palpitations, worsening shortness of breath. Patient states she started to feel short of breath at rest felt anxious and felt her heart was racing. Patient also was having some chest discomfort described as pressure in nature retrosternal nonradiating constant. Patient does endorse she has also been noticing some increased lower extremity edema on and off for the last 1.5 months. Patient denies any previous cardiac workup, arrhythmias, or seen cardiology specialty. Patient does endorse family history of heart problems with grandmother and mother having CHF and hypertension. Upon evaluation in the ED patient found to have troponins trending 20 > 28 > 38. Chest x-ray is negative for acute congestion/edema. Elevated LFTs with AST 215 and ALT 90. Patient endorses occasional at times heavy alcohol consumption socially. Patient also found to have elevated blood pressure of 174/81 on presentation as well as being tachycardic with heart rate to the 120s to 130s. EKG reviewed and shows sinus tachycardia at 121 beats per minute, LVH, nonspecific ST and T-wave abnormality. Patient was admitted to the hospital. I am asked to consult on this patient. Past Medical History HTN, anxiety Past Surgical History Denies previous cardiac surgeries Allergies: Coded Allergies: NO KNOWN ALLERGIES (Unverified , 03/10/25) Current Medications Current Medications Medications (Trade) Dose Ordered Sig/Lacho Route PRN Reason Start Time Stop Time Status Last Admin Sodium Chloride 1,000 ml @ 100 mls/hr Q10H IV 03/11/25 15:00 03/12/25 01:00 Hydralazine HCl (Apresoline Injection) 10 mg Q6HP PRN IV SBP>150 03/11/25 15:00 Diltiazem HCl (Cardizem Injection) 10 mg Q4H PRN IV HR > 110 03/11/25 15:00 Review of Systems Constitutional: No: Fever, Chills, Sweats, Weakness, Malaise, Other Eyes: No: Pain, Vision change, Conjunctivae inflammation, Eyelid inflammation, Other, Redness ENT: No: Ear pain, Ear discharge, Nose pain, Nose discharge, Nose congestion, Mouth pain, Mouth swelling, Throat pain, Throat swelling, Other Respiratory: No: Cough, Dry, Shortness of breath, SOB with exertion, Wheezing, Hemoptysis, Pleuritic Pain, Sputum, Wheezing, Other Cardiovascular: ; No: Chest Pain Palpitations, Orthopnea, Paroxysmal Noc. Dyspnea, Edema, Lt Headedness, Other Gastrointestinal: No: Nausea, Vomiting, Abdominal Pain, Diarrhea, Constipation, Melena, Hematochezia, Other Genitourinary: No Dysuria, No Frequency, No Incontinence, No Hematuria, No R etention, No Other Musculoskeletal: neck pain; No: other, shoulder pain, arm pain, back pain, hand pain, leg pain, foot pain Skin: No: Rash, Lesions, Jaundice, Bruising, Other Neurological: Other (Dizziness, headache.); No: Weakness, Numbness, Incoordin ation, Change in speech, Confusion, Seizures Vital Signs Vital Signs Date Time Temp Pulse Resp B/P (MAP) Pulse Ox O2 Delivery O2 Flow Rate FiO2 03/12/25 09:34 140/73 03/12/25 09:00 83 20 97 03/12/25 08:00 Room Air* 0 21 03/12/25 05:00 97.7 97.7 Physical Exam GENERAL: Alert and oriented x 3. No acute distress. EYES: PERRL, EOMI. Anicteric. HENT: Moist mucous membranes. LUNGS: Clear to auscultation bilaterally. CARDIOVASCULAR: Regular rate and rhythm. ABDOMEN: Soft, nontender and nondistended. EXTREMITIES: No edema. NEUROLOGIC: No focal neurological deficits. SKIN: Warm, dry. Labs/Diagnostic Data Labs Test 03/12/25 10:10 03/11/25 16:35 03/11/25 03:24 03/10/25 16:37 Range/Units White Blood Count 4.8 # 4.4-10.8 10^3/uL Red Blood Count 3.43 L 4.0-5.20 10^6/uL Hemoglobin 9.6 #L 12.2-16.2 g/dL Hematocrit 30.2 #L 36.0-46.0 % Mean Corpuscular Volume 88.1 80.0-100.0 fL Mean Corpuscular Hemoglobin 28.0 28.0-32.0 pg Mean Corpuscular Hemoglobin Concent 31.7 L 32.0-36.0 g/dL Red Cell Distribution Width 17.3 H 11.8-14.3 % Platelet Count 246 140-450 10^3/uL Mean Platelet Volume 7.6 6.9-10.8 fL Neutrophils (%) (Auto) 58.7 37.0-80.0 % Lymphocytes (%) (Auto) 28.4 10.0-50.0 % Monocytes (%) (Auto) 11.6 0.0-12.0 % Eosinophils (%) (Auto) 0.2 0.0-7.0 % Basophils (%) (Auto) 1.1 0.0-2.0 % Neutrophils # (Auto) 2.8 1.6-8.6 10 ^3/uL Lymphocytes # (Auto) 1.4 0.4-5.4 10 ^3/uL Monocytes # (Auto) 0.6 0-1.3 10 ^3/uL Eosinophils # (Auto) 0 0-0.8 10 ^3/uL Basophils # (Auto) 0.1 0-0.2 10 ^3/uL Nucleated Red Blood Cells 0.2 % Troponin I High Sensitivity 7 </=34 ng/L B-Type Natriuretic Peptide 226.18 0-100 pg/mL Blood Gas Specimen Type Arterial Blood Gas Sample Site Right radial Blood Gas Patient Temperature 37.0 Arterial Blood Date Drawn [id number] Arterial Blood pH 7.466 H 7.350-7.450 Arterial Blood Partial Pressure CO2 26.3 L 32.0-45.0 mmHg Arterial Blood Partial Pressure O2 94.3 83.0-108.0 mmHg Arterial Blood HCO3 18.5 L 21.0-28.0 mmol/L Arterial Blood Oxygen Saturation 97.0 94.0-98.0 % Arterial Blood Base Excess -4.1 L -2.0-3.0 mmol/L Arterial Blood Oxyhemoglobin 96.2 94.0-98.0 % Arterial Blood Carboxyhemoglobin 0.3 L 0.5-1.5 % Arterial Blood Methemoglobin 0.5 0.0-1.5 % Yobany Test Yes Blood Gas Total Hemoglobin 10.10 L 12.0-16.0 g/dL Blood Gas Modality Room air FiO2 % 21.0 Sodium Level 138 136-145 mmol/L Potassium Level 4.0 3.5-5.1 mmol/L Chloride Level 110 H 98-107 mmol/L Carbon Dioxide Level 11 L 20-31 mmol/L Anion Gap 17 H 5-15 Blood Urea Nitrogen 15 9-23 mg/dL Creatinine 0.84 0.550-1.02 mg/dL Glomerular Filtration Rate Calc 82 >90 mL/min BUN/Creatinine Ratio 17.9 10.0-20.0 Serum Glucose 122 H 74-106 mg/dL Calcium Level 7.8 L 8.7-10.4 mg/dL Total Bilirubin 0.5 0.2-1.0 mg/dL Aspartate Amino Transferase (AST) 215 H 13-40 U/L Alanine Aminotransferase (ALT) 90 H 7-40 U/L Alkaline Phosphatase 318 H 46-116 U/L Total Protein 5.3 L 5.7-8.2 g/dL Albumin 2.8 L 3.2-4.8 g/dL Free Thyroxine (T4) Calculated 0.78 L 0.89-1.76 ng/dL Thyroid Stimulating Hormone (TSH) 6.03 H 0.55-4.78 uIU/mL Test 03/10/25 14:21 Range/Units Urine Color Yellow Yellow Urine Clarity Clear Clear Urine pH 6.0 5.0-9.0 Urine Specific [place] 1.028 1.001-1.035 Urine Protein 3+ H Negative Urine Ketones Trace Negative Urine Blood 2+ H Negative /uL Urine Nitrite Negative Negative Urine Bilirubin Negative Negative Urine Urobilinogen Normal Negative mg/dL Urine Leukocyte Esterase Negative Negative /uL Urine RBC 13 0 - 4 /hpf Urine Microscopic WBC < 1 0-5 /HPF Urine Squamous Epithelial Cells Few <5 /hpf Urine Bacteria None seen None Seen /hpf Urine Hyaline Casts Many 0 - 2 /lpf Urine Mucus Few None Seen Urine Yeast (Budding) Occasional None Seen /hpf Urine Glucose Normal Normal mg/dL Assessment Chest pain. Palpitations. Shortness of breath. Uncontrolled HTN. Elevated LFTs. Hypothyroid. Plan/Recommendation I agree with your ongoing assessment and care of plan. Patient has been seen by Vinnie Landa NP on my behalf, him and I discussed the plan with the patient. Patient's case was discussed with me. Continue blood pressure control. Trend troponin. Follow up echo. If no significant abnormalities noted on echo, we will Plan for stress test Friday morning. IV Cardizem. IV Hydralazine for SBP > 150. Metoprolol. Aspirin. Morphine and [place] for pain management. Additional plan as per the hospital course. Plan discussed with: Patient NYHA Physical activity limitations: Class3(Marked) ordinary Date of Service: Mar 12, 2025 Billing Provider: NELLA GOLD MD Cardiology Common Codes: [id number] INP/OBS CARE (High) Cardiology Consultation Codes: [id number] CONSULT <45MIN NELLA GOLD MD Mar 12, 2025 12:41
[2025-03-13] VITALS (9 sets, daily range): BP systolic 115–167; BP diastolic 60–89; PULSE 76–97; RESP 16–20; TEMP 97.6–98.7; O2SAT 85–100
--- NOTE | 2025-03-13 15:10 | DVHPN2 ---
Progress Note Date Seen: Mar 13, 2025 Medical Necessity Reason Pt with a Central, PICC or Fol: No Subjective Patient reports: No new complaints (Palpitation improved) Objective vital signs Vital Sign Date Time Temp Pulse Resp B/P (MAP) Pulse Ox O2 Delivery O2 Flow Rate FiO2 03/13/25 12:35 98.4 77 20 129/75 (93) 99 98.4 03/13/25 08:00 Room Air* 0 21 Total Intake and Output 03/12/25 03/12/25 03/13/25 15:00 23:00 07:00 Intake Total 118 ml 600 ml 720 ml Balance 118 ml 600 ml 720 ml medications Current Medications Medications Dose Ordered Sig/Lacho Route Start Time Stop Time Status Last Admin Dose Admin Aspirin 81 mg DAILY PO 03/11/25 10:00 03/13/25 09:13 81 MG Metoprolol Tartrate 25 mg BID PO 03/11/25 10:00 03/13/25 09:12 25 MG Levothyroxine Sodium 88 mcg QAM@0600 PO 03/11/25 06:00 03/13/25 06:03 88 MCG Acetaminophen/ Hydrocodone Bitart 1 tab Q4HP PRN PO 03/10/25 22:45 03/13/25 09:17 1 TAB Ondansetron HCl 4 mg Q4HP PRN IV 03/10/25 22:45 Docusate Sodium 100 mg BIDPRN PRN PO 03/10/25 22:45 03/13/25 12:51 100 MG Acetaminophen 650 mg Q6HP PRN PO 03/10/25 22:45 Nitroglycerin 0.4 mg Q5MINP PRN SL 03/11/25 00:00 Morphine Sulfate 2 mg Q30M PRN IV 03/11/25 00:00 Hydroxyzine Pamoate 50 mg Q8HP PRN PO 03/11/25 10:30 03/13/25 12:51 50 MG Sodium Chloride 1,000 ml @ 100 mls/hr Q10H IV 03/11/25 15:00 03/13/25 07:01 100 MLS/HR Hydralazine HCl 10 mg Q6HP PRN IV 03/11/25 15:00 Diltiazem HCl 10 mg Q4H PRN IV 03/11/25 15:00 Examination: GENERAL:Normal, HEENT:Normal, NECK:Normal, LUNGS:Normal, CVS:Normal, ABDOMEN:Normal, MSK:Normal, SKIN:Normal, NEURO:Normal, :Normal laboratory and microbiology Laboratory Tests 03/12/25 10:10 03/11/25 03:24 Test 03/11/25 03:24 Range/Units Serum Glucose 122 H 74-106 mg/dL Labs and/or images reviewed: Labs reviewed by me, Image(s) reviewed by me Problem List/Assessment/Plan Problem List/Assessment/Plan Sinus tachycardia Elevated TSH Elevated LFTs Hypo chloride anemia Metabolic acidosis Elevated anion gap Elevated troponin rule out ACS Proteinuria Hematuria Anemia normocytic with a clean significant Hypertensive urgency History of CVA History of diabetes Cardiology rec apprecated Troponin plateau Resume home meds IV fluids NPO after midnight Nuclear stress test in a.m. Full code Lovenox for DVT prophylaxis No GI prophylaxis needed Plan discussed with: Patient My Orders My Orders Orders - GEORGE ACEVEDO MD Procedure Category Date Status Time Npo (Nothing By DIET 03/14/25 Transmitted Mouth) Diet Breakfast Date of Service: Mar 13, 2025 Billing Provider: GEORGE ACEVEDO MD Common Visit Codes: [id number] INP/OBS CARE(MOD) GEORGE ACEVEDO MD Mar 13, 2025 15:10
--- NOTE | 2025-03-13 18:05 | DVHSR ---
APPROVED REPORT EXAM: Two-dimensional and M-mode echocardiogram with Doppler and color Doppler. Blood Pressure: 118/71 mmHg INDICATION Elevated Troponin R/O ACS RISK FACTORS Height: 5' 2", Weight: 156 DIMENSIONS LVDd4.0 (3.8-5.7cm)LA (2D)3.9 (1.9-4.0cm)Aortic Root2.9 (2.0-3.7cm) LVDs2.8 (2.5-4.0cm)LA (MM) (1.9-4.0cm)Aortic Cusp Exc1.6 (1.5-2.0cm) EF (%) 56.0 (55-70%)Rt. Atrium3.9 (1.9-4.0cm)Asc. Aorta cm IVSd0.9 (0.7-1.1cm)RV (D) (1.8-2.4cm) PWd0.9 (0.7-1.1cm) Mitral Valve MitralMitral Stenosis E wave1.00m/sMV Mean GR.mmHg A wave1.10m/sMV Peak GR.mmHg E/A ratio0.92D MVAcm2 Aortic Valve Aortic ValveAortic Stenosis V11.10m/Greg Mean GR.6mmHg V21.60m/Greg Peak GR.11mmHg LVOT Diameter2.1 (1.8-2.4cm)Doppler AVA2.38cm2 Tricuspid Valve TR Velocity2.50m/s [id number] Conclusion LV EF IS 65% AND IS NORMAL NORMAL VALVES NORMAL RV FUNCTION NO EFFUSION
--- NOTE | 2025-03-13 23:05 | DVHPN2 ---
Progress Note - Dictate Date Seen: Mar 13, 2025 Medical Necessity Reason Pt with a Central, PICC or Fol: No Subjective Patient was seen and evaluated in follow up. No overnight events. Patient complains of generalized discomfort. HGB 9.6, HCT 30.2. Telemetry reviewed. vital signs Vital Sign Date Time Temp Pulse Resp B/P (MAP) Pulse Ox O2 Delivery O2 Flow Rate FiO2 03/13/25 17:00 98.0 91 20 135/75 (95) 100 98.0 03/13/25 08:00 Room Air* 0 21 Total Intake and Output 03/12/25 03/12/25 03/13/25 15:00 23:00 07:00 Intake Total 118 ml 600 ml 720 ml Balance 118 ml 600 ml 720 ml medications Current Medications Medications Dose Ordered Sig/Lacho Route Start Time Stop Time Status Last Admin Dose Admin Aspirin 81 mg DAILY PO 03/11/25 10:00 03/13/25 09:13 81 MG Metoprolol Tartrate 25 mg BID PO 03/11/25 10:00 03/13/25 09:12 25 MG Levothyroxine Sodium 88 mcg QAM@0600 PO 03/11/25 06:00 03/13/25 06:03 88 MCG Acetaminophen/ Hydrocodone Bitart 1 tab Q4HP PRN PO 03/10/25 22:45 03/13/25 09:17 1 TAB Ondansetron HCl 4 mg Q4HP PRN IV 03/10/25 22:45 Docusate Sodium 100 mg BIDPRN PRN PO 03/10/25 22:45 03/13/25 12:51 100 MG Acetaminophen 650 mg Q6HP PRN PO 03/10/25 22:45 Nitroglycerin 0.4 mg Q5MINP PRN SL 03/11/25 00:00 Morphine Sulfate 2 mg Q30M PRN IV 03/11/25 00:00 Hydroxyzine Pamoate 50 mg Q8HP PRN PO 03/11/25 10:30 03/13/25 12:51 50 MG Sodium Chloride 1,000 ml @ 100 mls/hr Q10H IV 03/11/25 15:00 03/13/25 07:01 100 MLS/HR Hydralazine HCl 10 mg Q6HP PRN IV 03/11/25 15:00 Diltiazem HCl 10 mg Q4H PRN IV 03/11/25 15:00 objective GENERAL: Alert and oriented x 3. No acute distress. EYES: PERRL, EOMI. Anicteric. HENT: Moist mucous membranes. LUNGS: Clear to auscultation bilaterally. CARDIOVASCULAR: Regular rate and rhythm. ABDOMEN: Soft, nontender and nondistended. EXTREMITIES: No edema. NEUROLOGIC: No focal neurological deficits. SKIN: Warm, dry. laboratory and microbiology Laboratory Tests 03/12/25 10:10 03/11/25 03:24 Test 03/11/25 03:24 Range/Units Serum Glucose 122 H 74-106 mg/dL Problem List Chest pain. Palpitations. Shortness of breath. Uncontrolled HTN. Elevated LFTs. Hypothyroid. Assessment/Plan Continued all current supportive medical care. Stress test. Morphine and [place] for pain management. Aspirin, Metoprolol. Cardizem. IV Hydralazine for SBP > 150. Additional plan as per the hospital course. Dietary Evaluation Review Comments: 1) Continue cardiac diet 2) Encourage optimal PO intake 3) Refer to outpatient RD for weight management 4) Follow-up with cardiology 5) Continue to monitor I&O, labs, and skin integrity Expected Outcomes/Goals: 1) appetite and labs to improve 2) gradual wt loss 3) f/u in 3-5 days Plan discussed with: Patient NELLA GOLD MD Mar 13, 2025 18:43
[2025-03-14 01:00] VITALS: BP 153/71; PULSE 88; RESP 18; TEMP 96.7; O2SAT 98
[2025-03-14 05:00] VITALS: BP 131/85; PULSE 87; RESP 18; TEMP 96.7; O2SAT 100
[2025-03-14] MEDS ORDERED: REGADENOSON 0.4 MG/5 ML SYRG IV ONE (07:30)
[2025-03-14 08:00] VITALS: PULSE 75; PULSE 90; RESP 18
[2025-03-14 08:33] VITALS: BP 164/89; PULSE 90; RESP 16; TEMP 98; O2SAT 100
[2025-03-14] MEDS: REGADENOSON 0.4 MG/5 ML SYRG IV ONE ×2 (09:32→09:51)
--- NOTE | 2025-03-14 12:39 | DVHSR ---
APPROVED REPORT Exam: Nuclear Stress Test BMI: 0 Stress Test Details HR Max Heart Rate (APMHR): 164.203544 bpm Target HR (85% APMHR): 139.130964 bpm BP ECG Stress ECG Conclusion lvef 54% no severe ischemia notd NM EXAM: Myocardial Perfusion REST/STRESS Imaging Protocol: Rest Tc-99m/Stress Tc-99m 1 day Resting Data Rest SPECT myocardial perfusion imaging was performed in supine position 60 minutes following the int ravenous injection of 10.1 mCi of Tc-99m Sestamibi. Time of rest injection: 08:00 Date: 03/14/2025 Time of rest imagin:00 Date: 03/14/2025 Administration Route: IV Administration Site: Right AC Pharmacologic Stress Pharmacologic stress test was performed by injecting Regadenoson 0.4 mg IV push followed by the intra venous injection of 32.1 mCi of Tc-99m Sestamibi. Time of stress injection: 09:50 Date: 03/14/2025 Time of stress imagin:50 Date: 03/14/2025 Administration Route: IV Administration Site: Right AC Gated Stress SPECT was performed 60 minutes after stress injection. The images were gated to evaluate regional wall motion and calculate left ventricular ejection fracti on. Stress only was performed in the position. Nuclear Conclusion Nuclear Findings: negative for ischemia lvef 54% no severe ischemia notd
[2025-03-14 12:53] LABS: Potassium 4.4 mmol/L (3.5-5.1); Sodium 142 mmol/L (136-145)
[2025-03-14 12:54] LABS: Anion Gap 8 (5-15); Carbon Dioxide 22 mmol/L (20-31)
[2025-03-14 12:58] LABS: Calcium 7.7 mg/dL (8.7-10.4); Chloride 112 mmol/L (98-107)
[2025-03-14 12:59] LABS: BUN/Creatinine Ratio 26.5 (10.0-20.0); Blood Urea Nitrogen 18 mg/dL (9-23); Glucose 104 mg/dL (74-106)
[2025-03-14 13:01] LABS: Magnesium 1.6 mg/dL (1.6-2.6)
[2025-03-14] MEDS ORDERED: LISI-275 PO (13:04)
[2025-03-14] MEDS ORDERED: METO-6 PO (13:04)
[2025-03-14] MEDS ORDERED: LEVO50TA7 PO (13:04)
--- NOTE | 2025-03-14 13:06 | DVHDS2 ---
Discharge Summary Date of Admission Mar 10, 2025 at 23:47 Date of Discharge: Mar 14, 2025 Admitting Diagnosis Palpitations Labs/Diagnostic Data: Laboratory Results Test 03/14/25 11:55 03/12/25 10:10 03/11/25 16:35 03/11/25 03:24 Sodium Level 142 mmol/L (136-145) Potassium Level 4.4 mmol/L (3.5-5.1) Chloride Level 112 mmol/L (98-107) Carbon Dioxide Level 22 mmol/L (20-31) Anion Gap 8 (5-15) Blood Urea Nitrogen 18 mg/dL (9-23) Creatinine 0.68 mg/dL (0.550-1.02) Glomerular Filtration Rate Calc 102 mL/min (>90) BUN/Creatinine Ratio 26.5 (10.0-20.0) Serum Glucose 104 mg/dL (74-106) Calcium Level 7.7 mg/dL (8.7-10.4) Magnesium Level 1.6 mg/dL (1.6-2.6) White Blood Count 4.8 10^3/uL (4.4-10.8) Red Blood Count 3.43 10^6/uL (4.0-5.20) Hemoglobin 9.6 g/dL (12.2-16.2) Hematocrit 30.2 % (36.0-46.0) Mean Corpuscular Volume 88.1 fL (80.0-100.0) Mean Corpuscular Hemoglobin 28.0 pg (28.0-32.0) Mean Corpuscular Hemoglobin Concent 31.7 g/dL (32.0-36.0) Red Cell Distribution Width 17.3 % (11.8-14.3) Platelet Count 246 10^3/uL (140-450) Mean Platelet Volume 7.6 fL (6.9-10.8) Neutrophils (%) (Auto) 58.7 % (37.0-80.0) Lymphocytes (%) (Auto) 28.4 % (10.0-50.0) Monocytes (%) (Auto) 11.6 % (0.0-12.0) Eosinophils (%) (Auto) 0.2 % (0.0-7.0) Basophils (%) (Auto) 1.1 % (0.0-2.0) Neutrophils # (Auto) 2.8 10 ^3/uL (1.6-8.6) Lymphocytes # (Auto) 1.4 10 ^3/uL (0.4-5.4) Monocytes # (Auto) 0.6 10 ^3/uL (0-1.3) Eosinophils # (Auto) 0 10 ^3/uL (0-0.8) Basophils # (Auto) 0.1 10 ^3/uL (0-0.2) Nucleated Red Blood Cells 0.2 % Troponin I High Sensitivity 7 ng/L (</=34) B-Type Natriuretic Peptide 226.18 pg/mL (0-100) Blood Gas Specimen Type Arterial Blood Gas Sample Site Right radial Blood Gas Patient Temperature 37.0 Arterial Blood Date Drawn [id number] Arterial Blood pH 7.466 (7.350-7.450) Arterial Blood Partial Pressure CO2 26.3 mmHg (32.0-45.0) Arterial Blood Partial Pressure O2 94.3 mmHg (83.0-108.0) Arterial Blood HCO3 18.5 mmol/L (21.0-28.0) Arterial Blood Oxygen Saturation 97.0 % (94.0-98.0) Arterial Blood Base Excess -4.1 mmol/L (-2.0-3.0) Arterial Blood Oxyhemoglobin 96.2 % (94.0-98.0) Arterial Blood Carboxyhemoglobin 0.3 % (0.5-1.5) Arterial Blood Methemoglobin 0.5 % (0.0-1.5) Yobany Test Yes Blood Gas Total Hemoglobin 10.10 g/dL (12.0-16.0) Blood Gas Modality Room air FiO2 % 21.0 Total Bilirubin 0.5 mg/dL (0.2-1.0) Aspartate Amino Transferase (AST) 215 U/L (13-40) Alanine Aminotransferase (ALT) 90 U/L (7-40) Alkaline Phosphatase 318 U/L (46-116) Total Protein 5.3 g/dL (5.7-8.2) Albumin 2.8 g/dL (3.2-4.8) Free Thyroxine (T4) Calculated 0.78 ng/dL (0.89-1.76) Test 03/10/25 16:37 03/10/25 14:21 Thyroid Stimulating Hormone (TSH) 6.03 uIU/mL (0.55-4.78) Urine Color Yellow (Yellow) Urine Clarity Clear (Clear) Urine pH 6.0 (5.0-9.0) Urine Specific [place] 1.028 (1.001-1.035) Urine Protein 3+ (Negative) Urine Ketones Trace (Negative) Urine Blood 2+ /uL (Negative) Urine Nitrite Negative (Negative) Urine Bilirubin Negative (Negative) Urine Urobilinogen Normal mg/dL (Negative) Urine Leukocyte Esterase Negative /uL (Negative) Urine RBC 13 /hpf (0 - 4) Urine Microscopic WBC < 1 /HPF (0-5) Urine Squamous Epithelial Cells Few /hpf (<5) Urine Bacteria None seen /hpf (None Seen) Urine Hyaline Casts Many /lpf (0 - 2) Urine Mucus Few (None Seen) Urine Yeast (Budding) Occasional /hpf (None Urine Glucose Normal mg/dL (Normal) Other Laboratory Tests 03/14/25 11:55 03/12/25 10:10 Brief Hx & Hospital Course: History of Present Illness The patient is a 54 years old female with past medical history of CVA and anxiety who presented to [facility] ED with complaint of palpitations. Patient reports that she started experiencing left-sided chest pain associated with palpitations, shortness of breaths, and dizziness an during her shower, causing her the need to sit down, but no relief of symptoms. Patient was seen and evaluated in the ED, laboratory data shows WBC 9.1, platelets 404, sodium 139, potassium 3.1, BUN 16, creatinine 0.76, glucose 90, anion gap 19, calcium 7.7, troponin 38, blood pressure 159/112 trending down to 130 64, heart rate 131 trending down to 99, temperature 98.3 F, O2 saturation 98% room air. Chest x-ray shows no acute intrathoracic abnormality. Please see medication orders section in the computer. On my assessment, patient denies chest pain at this moment, no headache, no dizziness, no diaphoresis, no shortness of breaths, no nausea, no vomiting, no fever, no chills. Patient was admitted for further evaluation and medical management. Course of hospitalization: Patient's heart rate improved with beta-felipe therapy. Patient is blood pressure also improved with p.o. antihypertensives. 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 No inducible ischemia noted. Echocardiogram unremarkable. Patient will be discharged home with beta-felipe and JANE inhibitor therapy. Patient was also found to be hypothyroid, for which levothyroxine we will be prescribed as well. Patient was agreeable to be discharged home today all questions answered. Physical examination General: Alert and Oriented x3. No acute distress. Well-nourished. Eyes: EOMI. Anicteric. HENT: Moist mucous membranes. Lungs: Clear to auscultation bilaterally. No accessory muscle use. Cardiovascular: Regular rate and rhythm. No murmur. No JVD. Abdomen: Soft, non-tender and non-distended. No palpable masses. Extremities: No edema. Non-tender. Skin: No rashes or lesions. Warm. Neurologic: No focal neurological deficits. CN II-XII grossly intact, but not individually tested. Psychiatric: Cooperative. Appropriate mood and affect. Total time spent with patient discussing and formulating plan of care: 35 minutes. This medical document was created using an electronic medical record system with [employer] dictation system. Although this document has been carefully reviewed, there may still be some phonetic and typographical errors. These areas are purely typographical due to imperfections of the software programs, and do not reflect any compromise in the patient's medical care. Condition at Discharge: Fair Final Diagnosis/Problems List Ruled out ACLS. Palpitations Secondary diagnosis: Metabolic acidosis History of CVA ACS ruled out Discharge Disposition: Home Discharge Instruct/Medications Diet: Cardiac 2g Na,low cholest Activity: No Restrictions, As Tolerated Follow Up/Referral: Discharge Clinic in one week Medications: Toprol-XL 50 mg p.o. daily Lisinopril 10 mg p.o. daily Levothyroxine 50 mcg p.o. daily Scheduled Levothyroxine Sodium (Levothyroxine Sodium), 50 MCG PO DAILY Lisinopril (Lisinopril), 10 MG PO DAILY Metoprolol Succinate (Toprol Xl), 1 TAB PO DAILY 36 Discharge Statement: "Patient was advised to return to the ER or call 911 if any headaches, dizziness, shortness of breath, chest pain, abdominal pain, bleeding, fevers, or worsening of medical condition. Patient was counseled about treatment plan, medications, possible side effects, patientverbalized understanding. All questions were answered to the best of my ability. This discharge took greater then 30 minutes in planning, reviewing documentation, counseling the patient, and discussing with other team members." ASSESSMENT ASSESSMENT Assessment Ruled out ACLS. Palpitations Date of Service: Mar 14, 2025 Billing Provider: DESTINEE CORCORAN NP Common Visit Codes: 46504-BCF/OBS DISCH DAY >30min DESTINEE CORCORAN NP Mar 14, 2025 13:06
[2025-03-14 13:13] VITALS: BP 136/84; PULSE 61; RESP 17; TEMP 98; O2SAT 93
[2025-03-14 13:58] VITALS: PULSE 84; TEMP 36.7
[2025-03-14] MEDS: LISINOPRIL 5 MG TAB PO ONE (14:43)
[2025-03-14] MEDS ORDERED: METOPROLOL TARTRATE 25 MG TAB PO SCH (22:00)
--- NOTE | 2025-03-14 22:50 | DVHPN2 ---
Progress Note - Dictate Date Seen: Mar 14, 2025 Medical Necessity Reason Pt with a Central, PICC or Fol: No Subjective Patient was seen and evaluated in follow up. Patient has no new complaints at this time. Patient denies any cardiac symptoms. Patient is cardiac stable for discharge. Telemetry reviewed. vital signs Vital Sign Date Time Temp Pulse Resp B/P (MAP) Pulse Ox O2 Delivery O2 Flow Rate FiO2 03/14/25 14:43 150/82 03/14/25 13:58 36.7 84 03/14/25 13:13 17 93 03/14/25 08:00 Room Air* 0 21 Total Intake and Output 03/13/25 03/13/25 03/14/25 15:00 23:00 07:00 Intake Total 348 ml 300 ml 580 ml Output Total 4 ml Balance 348 ml 296 ml 580 ml objective GENERAL: Alert and oriented x 3. No acute distress. EYES: PERRL, EOMI. Anicteric. HENT: Moist mucous membranes. LUNGS: Clear to auscultation bilaterally. CARDIOVASCULAR: Regular rate and rhythm. ABDOMEN: Soft, nontender and nondistended. EXTREMITIES: No edema. NEUROLOGIC: No focal neurological deficits. SKIN: Warm, dry. laboratory and microbiology Laboratory Tests 03/14/25 11:55 03/12/25 10:10 Test 03/14/25 11:55 Range/Units Serum Glucose 104 74-106 mg/dL Problem List Chest pain. Palpitations. Shortness of breath. Uncontrolled HTN. Elevated LFTs. Hypothyroid. Assessment/Plan Continued all current supportive medical care. Stress test. Morphine and [place] for pain management. Aspirin, Metoprolol. Cardizem. IV Hydralazine for SBP > 150. Additional plan as per the hospital course. Dietary Evaluation Review Comments: 1) Continue cardiac diet 2) Encourage optimal PO intake 3) Refer to outpatient RD for weight management 4) Follow-up with cardiology 5) Continue to monitor I&O, labs, and skin integrity Expected Outcomes/Goals: 1) appetite and labs to improve 2) gradual wt loss 3) f/u in 3-5 days Plan discussed with: Patient NELLA GOLD MD Mar 14, 2025 22:50
--- NOTE | 2025-03-16 16:40 | ECG ---
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
--- NOTE | 2025-03-16 16:40 | ECG ---
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
--- NOTE | 2025-03-16 16:40 | ECG ---
[facility] Test Date: 2025-03-10 Test Time: 15:26:33 Pat Name: NICK MORALES Department: Room: 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
== END 2025-03-14 15:41 | disposition home or self-care (01) | DRG 199 ==
LOC: EDBD 12:27 → ER 12:27 → OVERFLOW 23:47 → TELE-WESTW 03-11 18:17
PROVIDERS: ADMIT Nurse Practitioner Acute Care; ATTEND Nurse Practitioner Acute Care
DX: I16.0 Hypertensive urgency (principal); E87.20 Acidosis, unspecified; R31.9 Hematuria, unspecified; E03.9 Hypothyroidism, unspecified; I10 Essential (primary) hypertension; F41.9 Anxiety disorder, unspecified; D50.9 Iron deficiency anemia, unspecified; Z79.899 Other long term (current) drug therapy; Z86.73 Personal history of transient ischemic attack (TIA), and cerebral infarction without residual deficits; Z82.49 Family history of ischemic heart disease and other diseases of the circulatory system
CPT/HCPCS: 36415; 36600; 71045; 76705; 78452; 80048; 80053; 81001; 82805; 83735; 83880; 84439; 84443; 84484; 85025; 93005; 93017; 93306; 96365; G0378